=== PATIENT | female | born 1985 | race Two or more races ===

== ENCOUNTER 2017-08-24 14:57 | Emergency (ER) | payer SELFPAY ==
[2017-08-24] MEDS: ALBUTEROL 0.083% (NEB) 2.5 MG/3 ML AMP NEB (15:36)
[2017-08-24] MEDS: IPRATROPIUM (NEB) 0.5 MG/2.5 ML AMP NEB (15:36)
[2017-08-24] MEDS: AZITHROMYCIN 250 MG TAB PO (15:38)
[2017-08-24] MEDS: predniSONE 20 MG TAB PO (15:38)
== END 2017-08-24 16:47 | disposition home or self-care (01) ==
LOC: FTE 14:57
DX: J45.901 Unspecified asthma with (acute) exacerbation (principal)
CPT/HCPCS: 94664; 99284-25

== ENCOUNTER 2018-02-10 11:47 | Emergency (ER) | payer MEDICAID ==
[2018-02-10 12:31] LABS: URINE BLOOD (Dip) POC 1+ (NEGATIVE); URINE GLUCOSE (Dip) POC Negative (NEGATIVE); URINE KETONES (Dip) POC Negative (NEGATIVE); URINE LEUKOCYTE EST (Dip) POC Negative (NEGATIVE); URINE NITRITE (Dip) POC Negative (NEGATIVE); URINE TOTAL PROTEIN POC Negative (NEGATIVE)
[2018-02-10 12:31] LABS: URINE PH (Dip) POC 5.5 (5.0-8.5)
== END 2018-02-10 13:12 | disposition home or self-care (01) ==
LOC: FTE 11:47
DX: R30.0 Dysuria (principal); J45.909 Unspecified asthma, uncomplicated
CPT/HCPCS: 81003; 81025; 99283

== ENCOUNTER 2018-03-31 08:18 | Emergency (ER) | payer SELFPAY, MEDICAID ==
[2018-03-31] MEDS: predniSONE 20 MG TAB PO (08:59)
[2018-03-31] MEDS: ALBUTEROL 0.083% (NEB) 2.5 MG/3 ML AMP NEB (09:12)
[2018-03-31] MEDS: IPRATROPIUM (NEB) 0.5 MG/2.5 ML AMP NEB (09:12)
== END 2018-03-31 10:45 | disposition home or self-care (01) ==
LOC: FTE 08:18
DX: J45.901 Unspecified asthma with (acute) exacerbation (principal)
CPT/HCPCS: 94664; 99283-25

== ENCOUNTER 2018-10-13 09:49 | Emergency (ER) | payer SELFPAY | END 2018-10-13 11:52 | disposition home or self-care (01) | LOC: FTE 09:49 | DX: R22.0 Localized swelling, mass and lump, head (principal); J45.909 Unspecified asthma, uncomplicated | CPT/HCPCS: 99282 ==

== ENCOUNTER 2018-10-25 20:27 | Emergency (ER) | payer SELFPAY ==
[2018-10-25] MEDS: KETOROLAC 30 MG INJ IM (21:18)
== END 2018-10-25 21:28 | disposition home or self-care (01) ==
LOC: FTE 20:27
DX: B00.89 Other herpesviral infection (principal); J45.909 Unspecified asthma, uncomplicated
CPT/HCPCS: 81025; 96372; 99284-25

== ENCOUNTER 2018-10-29 19:01 | Emergency (ER) | payer SELFPAY ==
[2018-10-29] MEDS: IBUPROFEN 600 MG TAB PO (20:52)
== END 2018-10-29 22:04 | disposition home or self-care (01) ==
LOC: FTE 22:04
DX: M25.561 Pain in right knee (principal); M25.562 Pain in left knee; M25.521 Pain in right elbow; J45.909 Unspecified asthma, uncomplicated
CPT/HCPCS: 73080; 73080-RT; 73562; 99284-25

== ENCOUNTER 2018-11-06 19:22 | Emergency (ER) | payer MEDICAID ==
[2018-11-06] MEDS: DIPHENHYDRAMINE 25 MG CAP PO (22:41)
[2018-11-06] MEDS: ONDANSETRON (ODT) 4 MG TAB ODT (22:41)
[2018-11-06] MEDS: predniSONE 20 MG TAB PO (22:42)
[2018-11-06] MEDS: FAMOTIDINE 20 MG TAB PO (22:42)
== END 2018-11-06 23:09 | disposition home or self-care (01) ==
LOC: FTE 19:22
DX: R21 Rash and other nonspecific skin eruption (principal)
CPT/HCPCS: 99283; J7512

== ENCOUNTER 2018-11-14 10:45 | Emergency (ER) | payer MEDICAID | END 2018-11-14 12:15 | disposition home or self-care (01) | LOC: FTE 10:45 | DX: K12.0 Recurrent oral aphthae (principal); I10 Essential (primary) hypertension; Z76.0 Encounter for issue of repeat prescription | CPT/HCPCS: 99283; Z7502 ==

== ENCOUNTER 2018-11-21 15:51 | Emergency (ER) | payer MEDICAID ==
[2018-11-24 13:47] LABS: HSV 2 IGG ANTIBODY <0.90 index
== END 2018-11-21 17:43 | disposition home or self-care (01) ==
LOC: FTE 15:51
DX: B00.1 Herpesviral vesicular dermatitis (principal); K12.0 Recurrent oral aphthae
CPT/HCPCS: 86692; 99283